=== PATIENT | female | born 1945 | race Caucasian/White ===

== ENCOUNTER 2017-01-16 20:22 | Emergency (ER) | payer MEDICARE ==
[2017-01-16 20:30] VITALS: BP 157/65
--- NOTE | 2017-01-16 22:22 | EDM.PDOC ---
ED HPI GENERAL MEDICAL PROBLEM - General Chief Complaint: Skin Complaint Stated Complaint: POSSIBLE SHINGLES ALL OVER, [id number] Time Seen by Provider: 01/16/17 21:45 Source of Information: Reports: Patient History Limitations: Reports: No Limitations - History of Present Illness INITIAL COMMENTS - FREE TEXT/NARRATIVE: c/o pain to left side for 4-5 days and today broke out with rash, questions shingle. Notes vaccination approximately 8 years ago. Left Thoracic Pain Score (Numeric/FACES): 9 - Related Data Allergies Allergy/AdvReac Type Severity Reaction Status Date / Time Penicillins Allergy Rash Verified 01/16/17 20:27 Home Meds: Home Meds Aspirin [Ecotrin] 81 mg PO DAILY 01/16/17 [History] Atenolol 100 mg PO BID 01/16/17 [History] Gemfibrozil [Lopid] 600 mg PO BID 01/16/17 [History] Insulin Glarg,Human.Rec.Analog [LantUS] 24 unit SUBCUT DAILY 01/16/17 [History] Krill/[place]-3/Dha/Epa/Lipids [Krill Oil 300 mg Softgel] 350 mg PO DAILY [History] Ranitidine [Zantac] 150 mg PO DAILY 01/16/17 [History] Ubidecarenone [Co Q-10] 100 mg PO DAILY 01/16/17 [History] amLODIPine [Norvasc] 10 mg PO DAILY 01/16/17 [History] atorvaSTATin [Lipitor] 40 mg PO BEDTIME 01/16/17 [History] glipiZIDE [Glipizide ER] 2.5 mg PO BID 01/16/17 [History] Past Medical History Cardiovascular History: Reports: High Cholesterol, Hypertension Genitourinary History: Reports: UTI, Recurrent Endocrine/Metabolic History: Reports: Diabetes, Type II - Infectious Disease History Infectious Disease History: Reports: Chicken Pox, Measles, Mumps - Past Surgical History GI Surgical History: Reports: Appendectomy, Cholecystectomy Female Surgical History: Reports: Hysterectomy Social & Family History - Tobacco Use Smoking Status *Q: Never Smoker Second Hand Smoke Exposure: No - Caffeine Use Caffeine Use: Reports: None - Recreational Drug Use Recreational Drug Use: No ED ROS GENERAL - Review of Systems Review Of Systems: See Below Constitutional: Reports: No Symptoms. Denies: Fever, Chills HEENT: Reports: No Symptoms Respiratory: Reports: No Symptoms Cardiovascular: Reports: No Symptoms GI/Abdominal: Reports: No Symptoms Skin: Reports: Lesions (left scapular radiating around under left breast tender to touch) Neurological: Reports: No Symptoms ED EXAM, SKIN/RASH Exam: See Below Exam Limited By: No Limitations General Appearance: Alert, Mild Distress Eye Exam: Bilateral Eye: EOMI Ears: Normal External Exam, Normal TMs Nose: Normal Inspection Throat/Mouth: Normal Inspection Head: Atraumatic, Normocephalic Neck: Normal Inspection Respiratory/Chest: No Respiratory Distress, Lungs Clear Cardiovascular: Normal Peripheral Pulses, Regular Rate, Rhythm GI/Abdominal: Normal Bowel Sounds Extremities: Normal Inspection Neurological: Alert, Oriented, Normal Cognition Psychiatric: Normal Affect Skin: Warm, Dry, Zoster-Like Rash (left lwer scapuall radiating under left breast, red patcy vesicular lesions.) Characteristics: Vesicular, Erythematous Associated features: Tenderness. No: Weeping Course - Vital Signs Last Recorded V/S: Last Vital Signs Temp 97.2 F 01/16/17 20:29 Pulse 74 01/16/17 20:29 Resp 20 01/16/17 20:29 BP 157/65 H 01/16/17 20:29 Pulse Ox 96 01/16/17 20:29 - Orders/Labs/Meds Meds: Medications Discontinued Medications Generic Name Dose Route Start Last Admin Trade Name [facility] PRN Reason Stop Dose Admin Acyclovir Confirm 01/16/17 22:25 Zovirax Administered 01/16/17 22:26 Dose 1,600 mg .ROUTE .STK-MED ONE Oxycodone/Acetaminophen Confirm 01/16/17 22:24 Percocet 325-5 Mg Administered 01/16/17 22:25 Dose 3 tab .ROUTE .STK-MED ONE Departure - Departure Time of Disposition: 22:18 Disposition: Home, Self-Care 01 Condition: Fair Clinical Impression: Shingles outbreak Qualifiers: Herpes zoster complications: without complications Qualified Code(s): B02.9 - Zoster without complications - Discharge Information Instructions: Shingles, [id number] Referrals: PCP,Not In Area [Primary Care Provider] - Forms: ED Department Discharge Additional Instructions: percocet 5/325 one every 6 hours as needed for pain #3, Rx #12 Acyclovir 200mg 4 tablets tonight and in am then Rx -Valcyclovir 100mg 3 times daily for 7 days keep area clean and dry follow up if increased redness purulent drainage.
[2017-01-16] MEDS ORDERED: Acetaminophen/oxyCODONE 325-5 MG Tab PO ONE (22:24)
[2017-01-16] MEDS ORDERED: Acyclovir 200 MG Cap PO ONE (22:24)
[2017-01-16] MEDS ORDERED: Acetaminophen/oxyCODONE 325-5 MG Tab ONE (22:24)
[2017-01-16] MEDS ORDERED: Acyclovir 200 MG Cap ONE (22:25)
== END 2017-01-16 22:30 | disposition home or self-care (01) ==
LOC: DL.ED 20:22
DX: B02.9 Zoster without complications (principal); E78.00 Pure hypercholesterolemia, unspecified; I10 Essential (primary) hypertension; Z87.440 Personal history of urinary (tract) infections; E11.9 Type 2 diabetes mellitus without complications; Z90.710 Acquired absence of both cervix and uterus; Z88.0 Allergy status to penicillin; Z79.82 Long term (current) use of aspirin; Z79.899 Other long term (current) drug therapy; Z90.49 Acquired absence of other specified parts of digestive tract
CPT/HCPCS: 99282; 99283; A9270-GY